=== PATIENT | female | born 1970 | race Caucasian/White ===

== ENCOUNTER 2021-03-22 12:42 | Outpatient (CLI) | payer MEDICARE, MEDICAID, SELFPAY ==
[2021-03-22 13:00] VITALS: PULSE 119; O2SAT 92
[2021-03-22 13:05] VITALS: PULSE 110; O2SAT 87
[2021-03-22 13:10] VITALS: PULSE 90; O2SAT 88
[2021-03-22 13:15] VITALS: PULSE 92; O2SAT 94
[2021-03-22 13:20] VITALS: PULSE 100; O2SAT 92
--- NOTE | 2021-03-22 13:33 | HOMEO2EVAL ---
Evaluation was performed at [facility] Home Oxygen Evaluation RC: Home Oxygen (O2) Evaluation Start: 03/22/21 13:22 Freq: Status: Active Protocol: RPE Activity Type Activity Date Activity User E-Sign Co-Sign Detail Recorded Client Recorded Date Recorded By Document 03/22/21 13:15 [email or web address] [email or web address] 03/22/21 13:27 DJO Document 03/22/21 13:15 [email or web address] [email or web address] 03/22/21 13:33 DJO Document 03/22/21 13:20 [email or web address] [email or web address] 03/22/21 13:27 DJO 03/22/21 03/22/21 03/22/21 13:15 13:15 13:20 Home O2 Evaluation Test Phase Exercise Resting Resting Oxygen Delivery Nasal Cannula Room Air Oxygen Flow Rate (L/min) 2 Pulse Oximetry (90-100 %) 94 94 92 Pulse Rate (60-100 beats/min) 92 89 100 Activity Tolerance Fair
--- NOTE | 2021-03-22 13:41 | HOMEO2EVAL ---
Evaluation was performed at [facility] Home Oxygen Evaluation RC: Home Oxygen (O2) Evaluation Start: 03/22/21 13:22 Freq: Status: Active Protocol: RPE Activity Type Activity Date Activity User E-Sign Co-Sign Detail Recorded Client Recorded Date Recorded By Document 03/22/21 13:15 [email or web address] [email or web address] 03/22/21 13:27 DJO Document 03/22/21 13:15 [email or web address] [email or web address] 03/22/21 13:33 DJO Document 03/22/21 13:20 [email or web address] [email or web address] 03/22/21 13:27 DJO 03/22/21 03/22/21 03/22/21 13:15 13:15 13:20 Home O2 Evaluation Test Phase Exercise Resting Resting Oxygen Delivery Nasal Cannula Room Air Oxygen Flow Rate (L/min) 2 Pulse Oximetry (90-100 %) 94 94 92 Pulse Rate (60-100 beats/min) 92 89 100 Activity Tolerance Fair
== END 2021-03-22 12:43 | disposition home or self-care (01) ==
LOC: ANHPFT 12:46
PROVIDERS: PCP Emergency Medicine; Visit Provider Nurse Practitioner
DX: J44.9 Chronic obstructive pulmonary disease, unspecified (principal)
CPT/HCPCS: 94618

== ENCOUNTER 2022-11-23 09:31 | Outpatient (CLI) | payer MEDICARE, MEDICAID, SELFPAY ==
--- NOTE | ~2022-11-23 | XR_ITS ---
EXAMINATION: XR lg joint inject/asp w image DATE: 11/23/2022 10:35 INDICATION: Right shoulder pain. TECHNIQUE: A time-out was performed to verify the patient's name, date of , and procedure to b e performed. The procedure including the risks, benefits, and alternatives was discussed with the pat ient. Risks discussed included bleeding and infection. The patient understood the risks and agreed to proceed. The skin overlying the right glenohumeral joint was prepped and draped in usual sterile fa shion. Anesthetic was administered with 1% lidocaine subcutaneously. A 22 G needle was advanced und er fluoroscopic guidance into the joint. Subsequently, injectate consisting of 4 mL 1% lidocaine and 1 mL 40 mg/mL Depo-Medrol was instilled. The needle was removed and the entry site was cleaned and dressed. There were no immediate complications. Fluoroscopy exposure time was 0.1 minutes. The total number of images was 1. FINDINGS: Real-time fluoroscopy demonstrates the needle in the right glenohumeral joint. Patient's pa in prior to procedure:01/13. Patient's pain following the procedure: 11/12. IMPRESSION: 1. Fluoroscopy guided right glenohumeral joint injection of local anesthetic and steroid with decreas e in the patient's presenting pain. Reviewed, dictated and finalized at location A. IMPRESSION: 1. Fluoroscopy guided right glenohumeral joint injection of local anesthetic an d steroid with decrease in the patient's presenting pain.
--- NOTE | ~2022-11-23 | XR_ITS ---
EXAMINATION: XR lg joint inject/asp add DATE: 11/23/2022 10:37 INDICATION: Left shoulder pain. TECHNIQUE: A time-out was performed to verify the patient's name, date of , and procedure to b e performed. The procedure including the risks, benefits, and alternatives was discussed with the pat ient. Risks discussed included bleeding and infection. The patient understood the risks and agreed to proceed. The skin overlying the left glenohumeral joint was prepped and draped in usual sterile fas hion. Anesthetic was administered with 1% lidocaine subcutaneously. A 22 G needle was advanced unde r fluoroscopic guidance into the joint. Subsequently, injectate consisting of 4 mL 1% lidocaine and 1 mL 40 mg/mL Depo-Medrol was instilled. The needle was removed and the entry site was cleaned and d ressed. There were no immediate complications. Fluoroscopy exposure time was 0.1 minutes. The total number of images was 1. FINDINGS: Real-time fluoroscopy demonstrates the needle in the left glenoid humeral joint. Patient's pain prior to procedure:01/13. Patient's pain following the procedure: 11/12. IMPRESSION: 1. Fluoroscopy guided left glenohumeral joint injection of local anesthetic and steroid with decrease in the patient's presenting pain. Reviewed, dictated and finalized at location A.
== END 2022-11-23 09:32 | disposition home or self-care (01) ==
LOC: ANHIMG 09:35
PROVIDERS: PCP Internal Medicine; Visit Provider Orthopaedic Surgery
DX: M25.511 Pain in right shoulder (principal); M25.512 Pain in left shoulder
CPT/HCPCS: 20610; 77002; J1030